=== PATIENT | female | born 1940 | race Caucasian/White ===

== ENCOUNTER → 2018-03-24 12:17 | Outpatient (CLI) | payer MEDICARE, SELFPAY ==
--- NOTE | 2018-03-24 12:20 | MRI_ITS ---
STUDY: MRI LUMBAR SPINE WITHOUT CONTRAST REASON FOR EXAM: Female, 77 years old. Back and leg pain TECHNIQUE: Standardized fat and water weighted pulse sequences were obtained in the sagittal and axial planes. COMPARISON: None FINDINGS: T12-L1: Normal endplates. Normal disc height, hydration and morphology. Normal bilateral facet joints. Normal central canal and bilateral lateral recesses. Normal bilateral intervertebral neural foramina. Normal lumbar lordosis. There is severe levoscoliosis. Scoliosis. Normal conus medullaris that terminates at L1 L1-2: Normal endplates. Normal disc height, desiccation and normal morphology. Normal bilateral facet joints. Normal central canal and bilateral lateral recesses. Normal bilateral intervertebral neural foramina. L2-3: Normal endplates. Normal disc height desiccation and normal morphology. Normal bilateral facet joints. Normal central canal and bilateral lateral recesses. Normal bilateral intervertebral neural foramina. L3-4: Status post right laminotomy Degenerative endplate changes.. Narrowed disc space with desiccation of the disc with small right posterolateral disc/osteophyte protrusion.. Bilateral facet arthropathy more pronounced on the right. Normal bilateral facet joints. Normal central canal. Severe right lateral recess and neuroforaminal stenosis. L4-5: Status post right laminectomy. Normal endplates. Normal disc height, desiccation and minor annular bulge.. Bilateral facet arthropathy and thickening of ligamenta flava more pronounced on the left Normal central canal. Severe bilateral recess and neuroforaminal stenosis L5-S1: Normal endplates. Normal disc height, desiccation and normal morphology. Mild facet arthropathy.. Normal central canal and bilateral lateral recesses. Normal bilateral intervertebral neural foramina. Normal visualized sacral ala. Normal visualized paraspinous soft tissue structures. MRI/Spine Lumbar (Routine) IMPRESSION: Severe levoscoliosis and degenerative changes.. Postsurgical changes L3-4 and L4-5. There is spinal stenosis at L3-4 and L4-5 secondary to disc disease and bony hypertrophy more severe on the right. Electronically Signed: Parker Carver MD at 23:33 EDT , Service support ,
== END ==
LOC: MRI 12:18
PROVIDERS: Family Provider Physician Assistant; PCP Physician Assistant; Visit Provider Anesthesiology Pain Medicine
DX: M54.9 Dorsalgia, unspecified (principal); M79.606 Pain in leg, unspecified
CPT/HCPCS: 72148

== ENCOUNTER → 2018-11-08 12:36 | Outpatient (CLI) | payer MEDICARE, SELFPAY ==
[2018-11-08 14:03] LABS: Amphetamine Urine VISTA NEGATIVE (<1000 ng/mL); Barbiturate Urine VISTA NEGATIVE (< 200 ng/mL); Benzodiazepine Urine VISTA NEGATIVE (< 200 ng/mL); Cocaine Urine VISTA NEGATIVE (< 300 ng/mL); Ecstacy Urine VISTA POSITIVE (< 500 ng/mL); Methadone Urine VISTA NEGATIVE (< 300 ng/mL); PCP Urine VISTA NEGATIVE (< 25 ng/mL); THC Urine VISTA NEGATIVE (< 50 ng/mL); Vista UDS pH Range 5
== END ==
PROVIDERS: Family Provider Physician Assistant; PCP Physician Assistant; Referring Provider Anesthesiology Pain Medicine; Visit Provider Anesthesiology Pain Medicine
DX: F11.20 Opioid dependence, uncomplicated (principal)
CPT/HCPCS: 80307

== ENCOUNTER → 2018-11-16 14:25 | Outpatient (CLI) | payer MEDICARE, SELFPAY ==
[2018-11-16 14:25] VITALS: BMI 38.5
--- NOTE | 2018-11-16 14:29 | RAD_ITS ---
STUDY: X-RAY - LUMBAR SPINE REASON FOR EXAM: Female, 78 years old. Chronic back pain. TECHNIQUE: 4 view(s) of the lumbar spine were obtained including flexion and extension views. COMPARISON: None FINDINGS: There is straightening of the normal lumbar lordosis. There is a marked levoscoliosis of the lumbar spine. There is a normal alignment of the vertebrae. There is multilevel endplate spondylosis of the lumbar vertebrae. There is multi-level degenerative disc disease with multi-level disc space narrowing. Facet joint osteoarthritis. There is atherosclerotic calcification of the abdominal aorta without a demonstrated aneurysm. Multiple calcified splenic granulomas. Large amount of fecal material is seen in the colon. RAD/L/S Spine Min 4 Views IMPRESSION: Degenerative changes of the spine, as detailed above. Marked degree of levoscoliosis. Electronically Signed: Yoni Davila MD at 13:46 EST , Service support ,
--- NOTE | 2018-11-16 15:45 | RAD_ITS ---
STUDY: 2 VIEW THORACOLUMBAR SPINE FOR SCOLIOSIS REASON FOR EXAM: Female, 78 years old. Lumbar 11/16/2018 TECHNIQUE: 2 views of the thoracolumbar spine. COMPARISON: None. FINDINGS: 30 degrees of levoconvex thoracic scoliosis centered at the T4-5 level. 44 degrees of dextroconvex thoracic scoliosis centered at the T9-10 level. 48 degrees of levoconvex lumbar scoliosis centered at the L1-2 level. Clips in the right axilla. Calcified splenic granulomata. Diffuse degenerative disc disease. RAD/Scoliosis 2 or 3 views IMPRESSION: Thoracolumbar scoliosis as described. Electronically Signed: Minor Aranda MD at 6:42 EST Tel , Service support ,
--- OUTSIDE RECORDS SUMMARY | 2019-01-18 20:01 | XMS RPT_ITS ---
:1940 Author Organization OHIP Support Name Relationship Address Phone R Unavailable Unavailable Unavailable MAURICE PINEDO Unavailable [address] + [place] [address] SHAYE PINEDO Unavailable . + ., . . R Unavailable Unavailable Unavailable MAURICE PINEDO Unavailable [address] + [place] [address] SHAYE PINEDO Unavailable . + ., . . R Unavailable Unavailable Unavailable MAURICE PINEDO Unavailable [address] + [place] [address] NOT GIVEN Unavailable Unavailable Unavailable MAURICE PINEDO Unavailable [address] + [place] [address] NOT GIVEN Unavailable Unavailable Unavailable NOT GIVEN Unavailable Unavailable Unavailable MAURICE PINEDO Unavailable [address] + [place] [address] R Unavailable Unavailable Unavailable MAURICE PINEDO Unavailable [address] + [place] [address] NOT GIVEN Unavailable Unavailable Unavailable MAURICE PINEDO Unavailable [address] + [place] [address] NOT GIVEN Unavailable Unavailable Unavailable MAURICE PINEDO Unavailable [address] + [place] [address] NOT GIVEN Unavailable Unavailable Unavailable MAURICE PINEDO Unavailable [address] + [place] [address] NOT GIVEN Unavailable Unavailable Unavailable MAURICE PINEDO Unavailable [address] + [place] [address] Care Team Providers Name Role Phone Audi Preciado Attending Unavailable Audi Preciado Referring Unavailable KAIA YBARRA Primary Care Unavailable Alanis Pacheco Attending Unavailable KAIA YBARRA Referring Unavailable YBARRA, KAIA Primary Care Unavailable Pacheco Alanis Attending Unavailable Tara Alanis Referring Unavailable YBARRA, KAIA Primary Care Unavailable Audi Preciado Attending Unavailable Basali, Ayman Referring Unavailable YBARRA, KAIA Primary Care Unavailable YBARRA, KAIA J Admitting Unavailable YBARRA, KAIA J Attending Unavailable YBARRA, KAIA J Primary Care Unavailable GREGORY SAM Consulting Unavailable PROVIDER, UNKNOWN Consulting Unavailable PROVIDER, UNKNOWN Consulting Unavailable PROVIDER, UNKNOWN Consulting Unavailable YBARRA, KAIA J Admitting Unavailable YBARRA, KAIA J Attending Unavailable YBARRA, KAIA J Primary Care Unavailable GREGORY SAM Consulting Unavailable PROVIDER, UNKNOWN Consulting Unavailable PROVIDER, UNKNOWN Consulting Unavailable PROVIDER, UNKNOWN Consulting Unavailable TERA LAZO DO Admitting Unavailable TERA LAZO DO Attending Unavailable TERA LAZO DO Primary Care Unavailable YBARRA, KAIA J Consulting Unavailable YBARRA, KAIA J Referring Unavailable PROVIDER, UNKNOWN Consulting Unavailable YBARRA, KAIA J Admitting Unavailable YBARRA, KAIA J Attending Unavailable YBARRA, KAIA J Primary Care Unavailable YBARRA, KAIA J Consulting Unavailable PROVIDER, UNKNOWN Consulting Unavailable YBARRA, KAIA J Admitting Unavailable YBARRA, KAIA J Attending Unavailable YBARRA, KAIA J Primary Care Unavailable YBARRA, KAIA J Consulting Unavailable YBARRA, KAIA J Referring Unavailable PROVIDER, UNKNOWN Consulting Unavailable RICHA PHILIPPE Admitting Unavailable RICHA PHILIPPE Attending Unavailable JOSE MARTINRICHA Primary Care Unavailable YBARRA, KAIA J Consulting Unavailable PROVIDER, UNKNOWN Consulting Unavailable YBARRA, KAIA J Admitting Unavailable YBARRA, KAIA J Attending Unavailable YBARRA, KAIA J Primary Care Unavailable YBARRA, KAIA J Consulting Unavailable PROVIDER, UNKNOWN Consulting Unavailable PROBLEMS PROBLEMS DATE TYPE CONDITION / CODE ATTENDING STATUS SOURCE 11/16/2018 Unknown M54.5 - Low back Alanis Pacheco Active [facility] M54.5(ICD-10) Hospital Repository 11/08/2018 Unknown F11.20 - Opioid BasalJah velezisaak Active [place] [facility], Community uncomplicated / Hospital F11.20(ICD-10) Repository 07/13/2018 Principle Hypothyroidism, YBARRA, KAIA Active [facility] Diagnosis unspecified / J [facility] E039(ICD-10) Hospital Repository 12/15/2017 Admitting Nausea / LAZO, Active [facility] Diagnosis R110(ICD-10) TERA DALY [facility] Repository 12/15/2017 Principle Other chest pain / LAZO, Active [facility] [place] Diagnosis R0789(ICD-10) [facility] Repository 12/15/2017 Secondary Other hypotension / LAZO, Active [facility] [place] Diagnosis I9589(ICD-10) [facility] Repository 12/15/2017 Secondary Personal history of LAZO, Active [facility] [place] Diagnosis malignant neoplasm [facility] breast / Hospital Z853(ICD-10) Repository PROCEDURES PROCEDURES No Procedure Records FoundRESULTS RESULTS ORTHOPEDIC VISIT Observed: 11/20/2018 Status: F Source: [facility] REPORT 11:[address] [facility] REPOSITORY [facility] [address] [place] [address] [address] [place] [address] OFFICE VISIT Date of Service: 11/16/18 MR#: [id number] Acct: [id number] Name: RADHA PEDERSEN Rep #: [id number] : 1940 Provider: Alanis Pacheco MD Age/Sex: 78/F Location[place] [facility] Status: Signed Intake Vital Signs11/16/18 Height 5 ft 2 in 11/16/18 Weight: 211 lb 11/16/18 Body Mass Index (BMI) 38.5 Intake Visit Reasons: LOW BACK PAIN Is patient in pain?: Yes Pain scale (1-10): 7 Allergies No Known Allergies Allergy (Unverified 11/16/18 14:25) Medications carvedilol 6.25 mg tablet 6.25 mg PO BID 11/16/18 [History Confirmed 11/16/18] levothyroxine 25 mcg capsule 25 mcg PO DAILY 11/16/18 [History Confirmed 11/16/18] lisinopril 10 mg tablet 10 mg PO DAILY 11/16/18 [History Confirmed 11/16/18] trazodone 100 mg tablet 100 mg PO DAILY 11/16/18 [History Confirmed 11/16/18] PFSH Medical History Hypertension (Chronic) Surgical History H/O mastectomy (Acute) h/o back surgery (Acute) Family History Father CVA (cerebral vascular accident) Mother Hypertension Social History Smoking Status: Former smoker quit date: 10/26/99 pack-years: 15 HPI LOW BACK PAIN: Details: RADHA PEDERSEN is a 78 year old RHD F here today referred by Dr Preciado for low back pain. Patient states that she has had low back pain for about a year with no known injury. Patient states that she has a history of lumbar surgery in 2009 for right leg pain. She believes she had a right L3-L4 bulging disc. The surgery was helpful until a year ago when she started having left leg radiating pain. She denies postoperative complications. She now complains of 50% back pain and 50% left buttock, posterior thigh and calf pain. She denies right leg pain. It is worse with standing and walking and improved with laying. She had physical therapy nearly 3 years ago. She denies aqua therapy. She takes norco for the past [address] Preciado. She states she was recently diagnosed with scoliosis. She has had a 08/2018 caudal MIAH that helped for 4 days. She has had left L4-5 and L5-S1 MIAH in 02/2018 with 2-3 months of improvement. She has a history of breast CA x 2 with chemotherapy ending in 2012. She has hypothyroidism. She takes calcium and Vit D. 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 She has had laparoscopic abdominal surgery. She does use a cane due to pain. she denies bowel or bladder issues or difficulty with hand dexterity. She chews nicotine gum. ROS Musc Reports back pain, Reports radiating pain into limb Ortho Exam Spine Neuro: Yes Clonus (none bilaterally), Gillespie's (negative bilaterally), Babinski (downgoing bilaterally), Straight Leg Raise (positive on the left) and Light Touch Sensation (intact throughout) General: alert, oriented x3 Skin: Yes healed (healed midline lumbar incision) Capillary Refill <2sec: Yes Palpable Pulses: 1+ dp/pt pulses bilaterally Gait: antalgic, other (able to stand on heels and toes) Motor: strength 5/5 throughout Sensory Exam: no sensory deficits noted DTR's: Rt Triceps: 2+, Lt Triceps: 2+, Rt Biceps: 2+, Lt Biceps: 2+, Rt Brachioradialis: 2+, Lt Brachioradialis: 2+, Rt Patellar: 2+, Lt Patellar: 2+, Rt Ankle: 2+, Lt Ankle: 2+ Plantar Reflexes: Downgoing: bilateral Coordination: Romberg test normal Details: noted left valgus knee with standing and walking SPINE TESTING CERVICAL THORACIC Thomas: Positive (right thoracic prominence and left lumbar prominence) LUMBAR SLR: Positive, Le Iliac Compression: Positive, Right, Le Musculoskeletal General: Yes decreased ROM Cervical Spine: cervical muscular tenderness, pain with cervical ROM Thoracic/Lumbar Spine: pain with thoraco-lumbar ROM, paraspinal tenderness, thoraco-lumbar ROM limited, scoliosis Sacroiliac joints: bilateral (positive PARISA bilaterally) Strength 0=absent - 5=normal Deltoid R (C5): 5, Deltoid L (C5): 5, R Bicep (C5-6): 5, L Bicep (C5-6): 5, R Wrist Extensor (C6): 5, L Wrist Extensor (C6): 5, R Tricep (C7): 5, L Tricep (C7): 5, R Finger Flexors (C8): 5, L Finger Flexors (C8): 5, R First Dorsal Interossei (C8): 5, L First Dorsal Interossei (C8): 5, R Hip Flexor (L1-3): 5, L Hip Flexor (L1-3): 5, R Quadriceps (L2-4): 5, L Quadriceps (L2-4): 5, R Anterior Tibialis (L4-5): 5, L Anterior Tibialis (L4- 5): 5, R Hamstrings (L5-S1): 5, L Hamstrings (L5-S1): 5, GS (S1): 5, L GS (S1): 5, R Peroneals (S1): 5, L Peroneals (S1): 5 Details: leveled shoulders and pelvis positive sagittal balance Assessment AND Plan Problems 1. Other secondary scoliosis, thoracolumbar region M41.55 Plan Imaging XR lumbar spine 11/16/2018 reveals diffuse spondylosis with thoracolumbar scoliosis XR scoliosis 11/16/2018 reveals diffuse spondylosis with thoracolumbar scoliosis MRI lumbar spine 03/24/2018 reveals diffuse spondylosis without significant central stenosis. right L3-4, L4-5 foraminal stenosis and left L4-5 and L5-S1 foraminal stenosis I/R/P: 1. back pain 2. left leg pain 3. scoliosis 4. chronic opioid use 5. history of breast CA x 2 with chemotherapy 2012 6. nicotine use Ms. Pedersen presents with back pain and left leg pain in the setting of thoracolumbar scoliosis. The natural history and course of the symptomatology of scoliosis was discussed in detail with the patient. I answered all questions regarding the mode of onset, pathophysiology, symptoms, imaging findings, treatment options (both non-operative and operative) regarding her diagnosis. She is very fearful that her cancer has returned. There is no noted obvious lesion on MRI. She has no constitutional symptoms; however, given it has been a while since she saw her oncologist, would recommend reevaluation and reassurance. Discussed surgical intervention would be a large deformity surgery to include T4-ilium instrumented fusion. She would like to think about it. Recommend initiation of aqua therapy and physical therapy. Counseled on nicotine cessation. Follow up in 6-8 weeks and after she has seen her oncologist or sooner if issues arise. Plan of care discussed. All questions answered. The patient verbalized understanding of the disease process and agreed to the treatment plan formulated for this visit. Orders Orders: Coding Level of Care Code Off vis,new,level 4 Diagnoses Other secondary scoliosis, thoracolumbar region M41.55 Scoliosis type: other secondary scoliosis Spinal region: thoracolumbar 11/20/18 1131 <Electronically signed by Alanis Pacheco MD> Date Alanis Pacheco MD Cosigner Signature: Date (if applicable) CC: Audi Preciado MD SCOLIOSIS 2 OR 3 VIEWS Observed: 11/16/2018 Status: F Source: [place] 3:[address] [facility] REPOSITORY [facility] Imaging Services [address] [place] [address] Scoliosis 2 or 3 views MR#: [id number] Acct: [id number] Name: RADHA PEDERSEN Rep #: [id number] : 1940 F 78 From: Minor Aranda MD PCP: DANIELLA MENDOZA Status: REG CLI Study: Scoliosis 2 or 3 views Date of Exam: 11/16/18 Exam# [id number] Ordering Dr: Alanis Pacheco MD STUDY: 2 VIEW THORACOLUMBAR SPINE FOR SCOLIOSIS REASON FOR EXAM: Female, 78 years old. Lumbar 11/16/2018 TECHNIQUE: 2 views of the thoracolumbar spine. COMPARISON: None. FINDINGS: 30 degrees of levoconvex thoracic scoliosis centered at the T4-5 level. 44 degrees of dextroconvex thoracic scoliosis centered at the T9-10 level. 48 degrees of levoconvex lumbar scoliosis centered at the L1-2 level. Clips in the right axilla. Calcified splenic granulomata. Diffuse degenerative disc disease. RAD/Scoliosis 2 or 3 views IMPRESSION: Thoracolumbar scoliosis as described. Electronically Signed: Minor Aranda MD at 6:42 EST Tel , Service support , CC: DANIELLA YBARRA; Alanis Pacheco MD Principal Network Architect: Signed L/S SPINE MIN 4 Observed: 11/16/2018 Status: F Source: [facility] VIEWS 2:[address] [facility] REPOSITORY [facility] Imaging Services [address] [place] [id number] L/S Spine Min 4 Views MR#: [id number] Acct: [id number] Name: RADHA PEDERSEN Rep #: [id number] : 1940 F 78 From: Yoni Davila MD PCP: DANIELLA MENDOZA Status: REG CLI Study: L/S Spine Min 4 Views Date of Exam: 11/16/18 Exam# [id number] Ordering Dr: Alanis Pacheco MD STUDY: X-RAY - LUMBAR SPINE REASON FOR EXAM: Female, 78 years old. Chronic back pain. TECHNIQUE: 4 view(s) of the lumbar spine were obtained including flexion and extension views. COMPARISON: None FINDINGS: There is straightening of the normal lumbar lordosis. There is a marked levoscoliosis of the lumbar spine. There is a normal alignment of the vertebrae. There is multilevel endplate spondylosis of the lumbar vertebrae. There is multi-level degenerative disc disease with multi-level disc space narrowing. Facet joint osteoarthritis. There is atherosclerotic calcification of the abdominal aorta without a demonstrated aneurysm. Multiple calcified splenic granulomas. Large amount of fecal material is seen in the colon. RAD/L/S Spine Min 4 Views IMPRESSION: Degenerative changes of the spine, as detailed above. Marked degree of levoscoliosis. Electronically Signed: Yoni Davila MD at 13:46 EST , Service support , CC: DANIELLA YBARRA; Alanis Pacheco MD Principal Network Architect: Signed URINE DRUG SCREEN Collected: 11/08/2018 Status: F Source: [place] ([place]) 12:[address] [facility] REPOSITORY Order Comment: List of Drugs Taken or Suspected? UNK TYPE CODE TESTS RESULT OUT OF RANGE REFERENCE UNITS LAB L505.0075 TO BE Normal CONFIRMED Result Comment: CONFIRMATORY TESTING FOR ALL POSITIVE URINE DRUG SCREEN RESULTS WILL ONLY BE SENT OUT UPON PHYSICIAN ORDER. VISTA Urine Drug Screen methods provide only preliminary analytical test results. A more specific alternate chemical method must be used in order to obtain a confirmed analytical result. Gas chromatography/mass spectrometery (GC/MS) is the preferred confirmatory method. Clinical consideration and professional judgement should be applied to any drug of abuse test result, particularly when preliminary positive results are used. URINE TCA TESTING MUST BE ORDERED SEPARATELY. USE TEST MNEMONIC: [facility] LAB L505.5005 VISTA UDS PH 5 Normal LAB L505.5015 <1000 ng/mL AMPHETAMINES Normal NEGATIVE LAB L505.5025 < 200 ng/mL BARBITIURATES Normal NEGATIVE LAB L505.5035 < 200 ng/mL BENZODIAZIPINE Normal NEGATIVE LAB L505.5045 < 300 ng/mL COCAINE Normal NEGATIVE LAB L505.5055 < 500 High ng/mL ECSTACY POSITIVE LAB L505.5065 < 300 ng/mL METHADONE Normal NEGATIVE LAB L505.5075 < 300 ng/mL OPIATES Normal NEGATIVE LAB L505.5085 < 25 ng/mL PCP Normal NEGATIVE LAB L505.5095 < 50 ng/mL THC Normal NEGATIVE Performed By: #### L505.5000 #### [facility] [address] [place], [address] MISCELLANEOUS LAB Collected: 11/08/2018 Status: F Source: [facility] PROCEDURE 12:[address] [facility] REPOSITORY Order Comment: Test(s) Ordered: URINE TOXICOLOGY [id number] RUN LOWEST TEST TYPE CODE TESTS RESULT OUT OF RANGE REFERENCE UNITS LAB L801.1541 Normal [facility] LAB TEST Result Comment: [id number] 6+OXYCODONE-BUND (ng/mL) DRUG RESULT SCREEN CUTOFF ____ Amphetamines,Urine Negative ng/mL 1000 Amphetamine test includes Amphetamine and Methamphetamine. Barbiturates Negative ng/mL 200 Benzodiazepines Negative ng/mL 200 Cannabinoid Negative ng/mL 20 Cocaine (Metab) Negative ng/mL 300 Opiates Negative ng/mL 300 Opiates test includes Codeine, Morphine, Hydromorphone, Hydrocodone. Oxycodone/Oxymorphone,Urine Negative ng/mL 300 Test includes Oxydodone and Oxymorphone. TESTING PERFORMED AT [facility]. ORIGINAL REPORT ON FILE IN LAB CONTAINS ADDITIONAL TEST SITE INFORMATION. Performed By: #### L801.1541 #### [facility] [address] [place], [address] US THYROID Observed: 04/09/2018 Status: F Source: [place] [facility] [place] [address] [place], [place] [address] Patient: RADHA PEDERSEN Phone#: : 1940 Age: 77 Gender: F Pt. Type: Out Account: [id number] Location: [facility] Ordering: [facility] Exam Date: 04/09/2018/12:50 Family Phys: Charge Code: [id number] Physician: [place] Order #: [id number] DLP Dose#: PROCEDURE: THYROID ULTRASOUND COMPARISON: None. INDICATIONS: Right Neck Mass TECHNIQUE: High-resolution ultrasound was performed of the thyroid gland. FINDINGS: RIGHT LOBE: Normal. No visible mass, cyst, calcification, enlargement, or abnormal echotexture. Right lobe measures 3.6 x 1.5 x 1.5 cm. LEFT LOBE: Normal. No visible mass, cyst, calcification, enlargement, or abnormal echotexture. Left lobe measures 2.7 x 1.3 x 1.4 cm. ISTHMUS: Normal. No visible mass, cyst, calcification, enlargement, or abnormal echotexture. Isthmus measures 0.5 cm. OTHER: None. There is no evidence of focal abnormality at the site of palpable nodule. CONCLUSION: 1. The thyroid lobes are normal bilaterally. 2. There is no evidence of mass or cyst in the region of palpable abnormality. Dictated by: Mallory Dominguez MD on 04/09/2018 at 13:55 Approved by: Mallory Dominguez MD on 04/09/2018 at 13:55 SPINE LUMBAR Observed: 03/24/2018 Status: F Source: [facility] (ROUTINE) 12:[address] [facility] REPOSITORY [facility] Imaging Services [address] [place] [address] Spine Lumbar (Routine) MR#: [id number] Acct: [id number] Name: RADHA PEDERSEN Rep #: [id number] : 1940 F 77 From: Parker Carver MD PCP: DANIELLA MENDOZA Status: REG CLI Study: Spine Lumbar (Routine) Date of Exam: 03/24/18 Exam# [id number] Ordering Dr: Audi Preciado MD STUDY: MRI LUMBAR SPINE WITHOUT CONTRAST REASON FOR EXAM: Female, 77 years old. Back and leg pain TECHNIQUE: Standardized fat and water weighted pulse sequences were obtained in the sagittal and axial planes. COMPARISON: None FINDINGS: T12-L1: Normal endplates. Normal disc height, hydration and morphology. Normal bilateral facet joints. Normal central canal and bilateral lateral recesses. Normal bilateral intervertebral neural foramina. Normal lumbar lordosis. There is severe levoscoliosis. Scoliosis. Normal conus medullaris that terminates at L1 L1-2: Normal endplates. Normal disc height, desiccation and normal morphology. Normal bilateral facet joints. Normal central canal and bilateral lateral recesses. Normal bilateral intervertebral neural foramina. L2-3: Normal endplates. Normal disc height desiccation and normal morphology. Normal bilateral facet joints. Normal central canal and bilateral lateral recesses. Normal bilateral intervertebral neural foramina. L3-4: Status post right laminotomy Degenerative endplate changes.. Narrowed disc space with desiccation of the disc with small right posterolateral disc/osteophyte protrusion.. Bilateral facet arthropathy more pronounced on the right. Normal bilateral facet joints. Normal central canal. Severe right lateral recess and neuroforaminal stenosis. L4-5: Status post right laminectomy. Normal endplates. Normal disc height, desiccation and minor annular bulge.. Bilateral facet arthropathy and thickening of ligamenta flava more pronounced on the left Normal central canal. Severe bilateral recess and neuroforaminal stenosis L5-S1: Normal endplates. Normal disc height, desiccation and normal morphology. Mild facet arthropathy.. Normal central canal and bilateral lateral recesses. Normal bilateral intervertebral neural foramina. Normal visualized sacral ala. Normal visualized paraspinous soft tissue structures. MRI/Spine Lumbar (Routine) IMPRESSION: Severe levoscoliosis and degenerative changes.. Postsurgical changes L3-4 and L4-5. There is spinal stenosis at L3-4 and L4-5 secondary to disc disease and bony hypertrophy more severe on the right. Electronically Signed: Parker Carver MD at 23:33 EDT , Service support , CC: DANIELLA YBARRA; Audi Preciado MD Principal Network Architect: Signed CV ECHO COMPLETE Observed: 02/17/2018 Status: F Source: [facility] 2:30 PM [place] [address] Patient: RADHA PEDERSEN Phone#: : 1940 Age: 77 Gender: F Pt. 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 PATIENT MEASUREMENTS: Height (in.): 62.5 BSA: 1.9 Weight (lbs.): 204 BP: 102/73 Sweet Pickled Fruit Maker: FRANCISCO M MODE 2D MEASUREMENTS AND CALCULATIONS: LVIDd: 3.44 cm LVIDs: 2.30 cm IVSd: 1.15 cm LVPWd: 1.23 cm FS: 33.19 % Ao Root diam: 2.62 cm LA diam: 3.10 cm LA Volume Index: 19.3 mL/m2 LA A4 Area: 13.9 cm RA A4 Area: 11.8 cm RVDd: 2.12 cm TAPSE: 18 mm DOPPLER MEASUREMENTS AND CALCULATIONS MITRAL MV E MAX maxi: 54.03 cm/s MV A MAX maxi: 79.37 cm/s MV E-A ratio: 0.68 Lat Peak E' Maxi 7 cm/s Septal Peak E' MAXI 5 cm/s Continued Report - Page 2 of 3 Patient: RADHA PEDERSEN Phone#: : 1940 Age: 77 Gender: F Pt. Type: Out Account: [id number] Location: 052 Ordering: RICHA PHILIPPE Exam Date: 02/17/2018/12:59 Family Phys: KAIA YBARRA Charge Code: [id number] Physician: [place] Order #: [id number] DLP Dose#: Lateral E./E.' 7.9 Medial E./E.' 10.5 AORTIC Ao V2 max: 161.63 cm/s Ao max P.45 mm[Hg] LV V1 Max 104.51 cm/s LV V1 Max PG 4.37 mm[Hg] PULMONIC PA V2 Max 85.53 cm/s PA Max PG 2.93 mm[Hg] TRICUSPID TR Max Maxi 213.65 cm/s TR max PG 18.39 mm[Hg] RVSP 21 mmHg 2D/M-MODE AND COLOR FLOW LEFT VENTRICLE: Normal left ventricle size and wall thickness. Normal wall motion and systolic function, ejection fraction 55-60%. Grade 1 diastolic dysfunction with normal left atrial filling pressures. WALL MOTION: 1 - Basal anterior: Normal. 7 - Mid anterior: Normal. 13 - Apical anterior: Normal. 2 - Basal anteroseptal: Normal. 8 - Mid anteroseptal: Normal. 14 - Apical septal: Normal. 3 - Basal inferoseptal: Normal. 9 - Mid inferoseptal: Normal. 15 - Apical inferior: Normal. 4 - Basal inferior: Normal. 10-Mid inferior: Normal. 16 - Apical lateral: Normal. 5 - Basal inferolateral: Normal. 11-Mid inferolateral: Normal. 6 - Basal anterolateral: Normal. 12-Mid anterolateral: Normal. RIGHT VENTRICLE: Normal size and systolic function. Prominent moderator band noted. LEFT ATRIUM: Normal RIGHT ATRIUM: Normal MITRAL VALVE: Mild mitral annular calcification. Normal leaflet structure and mobility. No significant mitral stenosis or regurgitation. TRICUSPID VALVE: Normal leaflet structure and mobility. Mild tricuspid regurgitation. AORTIC VALVE: Trileaflet aortic valve with mild aortic valve thickening consistent with mild aortic sclerosis. No significant aortic stenosis or regurgitation. PULMONIC VALVE: Normal leaflet structure and mobility. Mild pulmonic insufficiency AORTIC ROOT: Normal size and mildly calcified IVC/SVC: Normal size and normal respirophasic response PERICARDIUM: No significant pericardial effusion CONCLUSION: Continued Report - Page 3 of 3 Patient: RADHA PEDERSEN Phone#: : 1940 Age: 77 Gender: F Pt. Type: Out Account: [id number] Location: 052 Ordering: RICHA PHILIPPE Exam Date: 02/17/2018/12:59 Family Phys: KAIA YBARRA Charge Code: [id number] Physician: [place] Order #: [id number] DLP Dose#: 1. Normal left ventricle size and wall thickness with normal wall motion and systolic function, ejection fraction 55- 60%. 2. Normal right ventricle size and systolic function. 3. Mild mitral annular calcification. 4. Mild tricuspid and pulmonic insufficiency. 5. Mild aortic sclerosis with no significant aortic stenosis. 6. Grade 1 diastolic dysfunction. 7. RVSP extremities reveal 1 mm. 8. As compared to the last report of 11/05/2016, no significant changes were noted. Dictated by: PEREZ ANGULO on 02/18/2018 at 10:09 Approved by: PEREZ ANGULO on 02/18/2018 at 10:09 CV ARTERIAL U OR L Observed: 02/17/2018 Status: F Source: [facility] 2:07 PM [place] [address] Patient: RADHA PEDERSEN Phone#: : 1940 Age: 77 Gender: F Pt. Type: Out Account: [id number] Location: 052 Ordering: RICHA PHILIPPE Exam Date: 02/17/2018/13:29 Family Phys: KAIA YBARRA Charge Code: [id number] Physician: [place] Order #: [id number] DLP Dose#: PROCEDURE: ARTERIAL BILAT U OR L SINGLE PHYSIOLOGY COMPARISON: None. INDICATIONS: Abnormal pulse TECHNIQUE: Resting continuous-wave Doppler recordings were obtained from the posterior tibial and dorsalis pedis arteries. Resting volume pulse recordings and segmental limb pressures were obtained at the ankle levels. CONTINUOUS-WAVE DOPPLER RIGHT LEFT Posterior Tibial Artery Triphasic Triphasic Dorsalis Pedis Triphasic Biphasic SEGMENTAL SYSTOLIC LIMB PRESSURES RIGHT (mmHg) LEFT (mmHg) Brachial: 102 102 Ankle (DPA): 112 100 Ankle (REGISTERED RESPIRATORY TECHNICIAN): 99 136 ANKLE BRACHIAL INDEX RIGHT LEFT 1.1 1.3 Sweet Pickled Fruit Maker: FRANCISCO FINDINGS: Right Lower Extremity: The right lower extremity demonstrates normal triphasic Doppler signals at the posterior tibial, and dorsalis pedis arteries. There are no significant pressure differentials in the segmental limb pressures when comparing side to side. Continued Report - Page 2 of 2 Patient: NUVIA RADHA Natasha Phone#: : 1940 Age: 77 Gender: F Pt. Type: Out Account: [id number] Location: 052 Ordering: RICHA PHILIPPE Exam Date: 02/17/2018/13:29 Family Phys: KAIA YBARRA Charge Code: [id number] Physician: Guayanilla Order #: [id number] DLP Dose#: Left Lower Extremity: The left lower extremity demonstrates normal triphasic Doppler signal at the posterior tibial and biphasic Doppler signal at the dorsalis pedis arteries. There are no significant pressure differentials in the segmental limb pressures when comparing side to side. CONCLUSION: 1. Normal bilateral ABIs Dictated by: Jihan Baird MD on 02/18/2018 at 14:55 Approved by: Jihan Baird MD on 02/18/2018 at 15:08 NM CARDIAC STRESS Observed: 01/20/2018 Status: F Source: [facility] (SPECT) W/NARAYAN 11:02 AM [place] [address] Patient: NUVIA RADHA Natasha Phone#: : 1940 Age: 77 Gender: F Pt. Type: Out Account: [id number] Location: 052 Ordering: KAIA YBARRA Exam Date: 01/20/2018/8:05 Family Phys: HOLDEN MOREJON Charge Code: [id number] Physician: [place] Order #: [id number] DLP Dose#: PROCEDURE: CARDIAC STRESS SPECT WITH LEXISCAN HISTORY: bilat mastectomy INDICATIONS: Chest pain TECHNIQUE: Resting and post Lexiscan stress SPECT images acquired in the horizontal long, vertical long and short axis views. Protocol: Lexiscan Duration: 0.4mg over 10 seconds Peak Heart Rate: 117 bpm, which is 80% of maximum predicted heart rate. Workload: not applicable REST DOSE: 10.3 mCi Sestamibi. STRESS DOSE: 32.8 mCi Sestamibi. INTERPRETATION: Resting Images: Resting myocardial perfusion images showed mild perfusion defect at the basal- mid inferior wall and moderate perfusion defect at the apical inferior wall Post Lexiscan stress Images: Post stress myocardial perfusion images showed similar or improved perfusion Gated SPECT/wall motion: LVF 59% with mild hypokinesis of inferior wall TID 1.0 CONCLUSION: Cannot rule out inferior wall infarct/hibernation on the imaging part of lexiscan nuclear stress test LVEF 59% with mild hypokinesis of the inferior wall Clinical correlation [place] [address] Patient: RADHA PEDERSEN Phone#: : 1940 Age: 77 Gender: F Pt. Type: Out Account: [id number] Location: [facility] Ordering: KAIA YBARRA Exam Date: 01/20/2018/8:05 Family Phys: HOLDEN MOREJON Charge Code: [id number] Physician: [place] Order #: [id number] DLP Dose#: Dictated by: Brett Abdul MD on 01/20/2018 at 11:15 Approved by: Brett Abdul MD on 01/20/2018 at 11:15 NM EXERCISE STRESS Observed: 01/20/2018 Status: F Source: [facility] (W/CARDIAC STUDY 10:22 AM [place] [address] Patient: RADHA PEDERSEN Phone#: : 1940 Age: 77 Gender: F Pt. Type: Out Account: [id number] Location: 052 Ordering: KAIA YBARRA Exam Date: 01/20/2018/6:26 Family Phys: RICHA PHILIPPE Charge Code: [id number] Physician: [place] Order #: [id number] DLP Dose#: PROCEDURE: ELECTROCARDIOGRAM STRESS TEST HISTORY: bilat mastectomy INDICATIONS: Lightheadedness TECHNIQUE: Electrocardiogram stress test was performed using the protocol listed below. STRESS RESULTS: Protocol: Lexiscan Duration: 0.4mg over 10 seconds Resting Heart Rate: 78 bpm. Resting Blood Pressure: 106/72 mmHg Peak Heart Rate: 117 which is 80% of maximum predicted heart rate Blood pressure with Lexiscan With Lexiscan infusion blood pressure increased to115/70 Workload: 1.70 METs. Symptoms with stress: no chest pain EKG Data EKG at Baseline: Normal sinus rhythm with nonspecific ST changes EKG with Stress: No ischemic ST changes were noted, no arrhythmia was noted CONCLUSION: Negative for ischemia EKG part of Lexiscan nuclear stress test, imaging part will be dictated separately. Dictated by: Brett Abdul MD on 01/20/2018 at 10:30 Approved by: Brett Abdul MD on 01/20/2018 at 10:30 CV CAROTID STUDY Observed: 12/30/2017 Status: F [facility]: [facility] 11:22 AM [place] [address] Patient: RADHA PEDERSEN Phone#: : 1940 Age: 77 Gender: F Pt. Type: Out Account: [id number] Location: 052 Ordering: KAIA YBARRA Exam Date: 12/30/2017/10:49 Family Phys: Charge Code: [id number] Physician: [place] Order #: [id number] DLP Dose#: PROCEDURE: CAROTID FLOW STUDY COMPARISON: None. INDICATIONS: Lightheadedness TECHNIQUE: Color duplex Doppler ultrasound and pulsed Doppler analysis were performed to evaluate the cervical carotid arteries and vertebral flow. All measurements for carotid artery narrowing or stenosis were obtained using the ipsilateral distal internal carotid artery as the reference value. RESTRICTIVE PREPARATION OPERATOR: FRANCISCO PT HISTORY: bilat mastectomy Lightheadedness RIGHT IMAGING FINDINGS: CCA: Intimal wall thickening is present. ICA: Intimal wall thickening present. ECA: Intimal wall thickening is present. Vertebral A: Antegrade flow Comments: Category: II. Less than 50% stenosis. ICA PSV less [id number]. Plaque and/or intimal thickening present. LEFT IMAGING FINDINGS: CCA: Mild heterogenous plaque is present. ICA: Moderate heterogenous plaque without hemodynamically significant stenosis. ECA: Intimal wall thickening is present. Vertebral A: Antegrade flow. Comments: Category: II Less than 50% stenosis ICA PSV, less [id number]. Plaque and/or intimal thickening present. RIGHT VELOCITY RECORDINGS Prox CCA: 61.93 cm/s Prox CCA EDV: 17.03 cm/s Continued Report - Page 2 of 2 Patient: RADHA PEDERSEN Phone#: : 1940 Age: 77 Gender: F Pt. Type: Out Account: [id number] Location: 05 Ordering: KAIA UNDERHILL Exam Date: 12/30/2017/10:49 Family Phys: Charge Code: [id number] Physician: [place] Order #: [id number] DLP Dose#: Mid CCA: 62.45 cm/s Mid CCA EDV: 16.24 cm/s Distal CCA: 61.20 cm/s Distal CCA EDV: 17.49 cm/s ECA: 52.45 cm/s ECA EDV: 6.56 cm/s Prox ICA: 69.95 cm/s Prox ICA EDV: 18.74 cm/s Mid ICA: 91.18 cm/s Mid ICA EDV: 36.22 cm/s Distal ICA: 53.43 cm/s Distal ICA EDV: 20.67 cm/s Vertebral Artery: 43.47 cm/s Vertebral Artery EDV: 13.54 cm/s Subclavian Artery: 70.91 cm/s LEFT VELOCITY RECORDINGS Prox CCA: 67.45 cm/s Prox CCA EDV: 18.74 cm/s Mid CCA: 63.70 cm/s Mid CCA EDV: 22.48 cm/s Distal CCA: 52.45 cm/s Distal CCA EDV: 15.04 cm/s ECA: 33.72 cm/s ECA EDV: 7.49 cm/s Prox ICA: 98.68 cm/s Prox ICA EDV: 34.97 cm/s Mid ICA: 41.61 cm/s Mid ICA EDV: 19.12 cm/s Distal ICA: 60.82 cm/s Distal ICA EDV: 26.07 cm/s Vertebral Artery: 31.71 cm/s Vertebral Artery EDV: 13.12 cm/s Subclavian Artery: 84.52 cm/s CONCLUSION: 1. No hemodynamically significant stenosis. 2. Atheromatous plaque at the left bifurcation without hemodynamically significant stenosis. Dictated by: Jihan Baird MD on 12/30/2017 at 15:52 Approved by: Mallory Dominguez MD on 01/03/2018 at 18:44 EMERGENCY DEPARTMENT Observed: 12/20/2017 Status: F Source: [facility] SUMMARY 9:13 [facility] EMERGENCY DEPARTMENT SUMMARY NAME NUMBER SEX AGE ADMIT DISC TYPE MED.RECORD# NUVIA WELLS J [id number] F 77 12/15/17 12/15/17 E.RRajwinder [id number] ROOM:ER-C DATE OF :1940 PHYSICIAN NO.:[id number] PHYSICIAN NAME:Tera Lazo D.O. PHYSICIAN:KAIA YBARRA ADDENDUM: The patient's care was turned over to Dr. Booker awaiting a return call back from Dr. Rosenthal for admission of the patient. D: Tera Lazo DO TD: 19:49 JOB #: [id number] Electronically signed by: Tera Lazo D.O. 12/20/17 09:13 Transcribed by: am 12/16/2017 20:15 EMERGENCY DEPARTMENT Observed: 12/20/2017 Status: F Source: [facility] SUMMARY 9:13 [facility] EMERGENCY DEPARTMENT SUMMARY NAME NUMBER SEX AGE ADMIT DISC TYPE MED.RECORD# NUVIA MORTENSENAH J [id number] F 77 12/15/17 12/15/17 ERajwinderRRajwinder [id number] ROOM:ER-C DATE OF :1940 PHYSICIAN NO.:[id number] PHYSICIAN NAME:Tera Lazo D.O. PHYSICIAN:KAIA YBARRA CHIEF COMPLAINT: Right-sided back, chest pain, cough for the past several days. HISTORY OF PRESENT ILLNESS: The patient states she does have a history of chronic low back pain and sees pain management with a recent injection of her lumbar spine. She states that the pain on the right side is in the flank area. It is sharp, stabbing, and feels like it catches, especially when she coughs. She denies any urinary symptoms. She does admit to a remote history of hematuria. PAST MEDICAL HISTORY: Includes breast cancer, hypertension, pneumonia, CHF, and heart disease. PAST SURGICAL HISTORY: Includes bilateral mastectomy, back surgery, and cholecystectomy. MEDICATIONS: Medication list was reviewed. ALLERGIES: Biaxin and Demeclocycline. SOCIAL HISTORY: The patient denies any use of tobacco or alcohol. PHYSICAL EXAMINATION: Temperature was 97.8, pulse 61, respiratory rate 16, initial blood pressure was high at 181/101, pulse ox was 94%. In general, the patient is alert, awake, oriented, appears to be in [id number] distress secondary to flank pain, nontoxic appearing without obvious respiratory distress. HEENT: Reveals oral mucosa pink and moist. Neck is supple without meningismus. Heart is regular rate and rhythm without murmurs, heaves, lift, or thrills. Lungs are essentially clear to auscultation. The patient does splint with deep inspiration due to discomfort. Abdomen is soft and benign without rebound, rigidity, or guarding noted. The patient does have right-sided c.v.a. tenderness worse with percussion. There is no crepitance or step-off of the posterior chest wall. There is no subcutaneous emphysema. Skin is warm, soft, dry and intact without rash. Capillary refill less than 2 seconds. Peripheral pulses are +2/4 in upper extremities. There is no peripheral edema noted. DIAGNOSTIC DATA: Due to patient's location of pain, I was concerned about possibility of either pneumonia and/or kidney stone. The patient had basic blood work and urinalysis ordered. White blood cell count was slightly elevated at 12.4, hemoglobin is normal at 14.2, hematocrit was normal at 41.9, platelet count was normal at 179,000 without left shift. Lipase was normal at 28. Troponin I was less than 0.01. BUN was elevated at 22, creatinine was elevated at 1.3. GFR was 40. AST was low at 11, and the rest of the liver enzymes were normal. Initial EKG reveals a sinus bradycardia with occasional PVCs; otherwise, there is no acute ST or T wave changes noted. The P wave is somewhat enlarged on EKG as well. CT scan of the abdomen and pelvis per stone protocol was performed and per the radiologist reveals no nephrolithiasis or hydronephrosis, dilated cystic duct remnant, two high attenuation structures at the cystic remnant may represent suture material versus small cholelithiasis. A chest x-ray reveals no acute pulmonary parenchymal abnormality. No change. Tortuous thoracic aorta. The descending aorta appears enlarged; however, this may be projectional. I did have a discussion with the radiologist concerning the patient's aorta on CT scan. She says there is no evidence of aneurysm or active bleeding noted on the noncontrast study, and she felt the only reason to order a CT scan with IV contrast would be to rule out the rare incidents of an occluded aorta. EMERGENCY DEPARTMENT COURSE AND TREATMENT: I did go back to the patient's room and reevaluate her lower extremities, and pulses are +2/4 and present at the dorsalis pedis and tibialis. Capillary refill is less than 2 seconds. There is no peripheral edema appreciated. During the course of the ED visit, the patient was treated with IV morphine and Zofran for nausea and a second dose of Zofran due to continued nausea. The patient then, approximately an hour and half to 2 hours after treatment with IV morphine, was noted to be hypotensive and then a lactic acid level was ordered and blood culture as well. The lactic acid level was normal at 5.4. She was also treated with IV fluids with 500 mL normal saline bolus with improvement of her blood pressure. On reevaluation of the patient after that, reveals the patient to be feeling better, though continues to have right flank pain and some nausea. DIAGNOSES: 1. Right flank pain - uncertain etiology. 2. Nausea. 3. Hypotensive episode. PLAN/DISPOSITION: My plan was to admit the patient overnight under the care of Dr. Rosenthal. I am currently awaiting call back by Dr. Rosenthal. The patient is currently stable, satisfactory condition. D: Tera Lazo DO TD: 19:49 JOB #: [id number] Electronically signed by: Tera Lazo D.O. 12/20/17 09:13 Transcribed by: am 12/16/2017 19:55 EMERGENCY DEPARTMENT Observed: 12/16/2017 Status: F Source: [facility] [place] 6[place] [facility] [place] SUMMARY NAME NUMBER SEX AGE ADMIT DISC TYPE MED.RECORD# NUVIA Workman [id number] F 77 12/15/17 12/15/17 E.RRajwinder [id number] ROOM:ER-C DATE OF :1940 PHYSICIAN NO.:[id number] PHYSICIAN NAME:Tera Lazo D.O. PHYSICIAN:KAIA YBARRA CHIEF COMPLAINT: Nausea associated with right chest pain. HISTORY OF PRESENT ILLNESS: The patient was initially seen by Dr. Lazo who endorsed care to Dr. Booker at 1945 hours on 12/15/2017 for recommendations for care to be obtained from Dr. Rosenthal. The patient was seen in room #3 in the presence of another sister and also another person who is Dr. Wolf's [id number]. The patient states that she has had this present since yesterday. It is discomfort to the right side, she indicated to the right lower rib margin below the scapula in the midscapular line. It is worse to turn. When she turns she gets a sharp pain and it makes her a little bit sick to her stomach and nauseated. She states the only time she has had this in the past was when she had pneumonia. She states she has not had a cold cough or congestion, but she states she has a runny nose, and she states that all old people have runny noses. She denies any fever or chills. She denies any abdominal pain and states she is occasionally nauseated. She denies vomiting or diarrhea. She states she has been eating well. She denies any chest pain. She denies shortness of breath. She admits to some headache, which is frontal. No change in vision, hearing or speech. No numbness or tingling of the arms or the legs. She and her sister note that when she moves, it hurts her. She states she knows no cause for this. She has no history of kidney stones. She has had her gallbladder out. 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 She states she has never head a heart catheterization. 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 PAST MEDICAL HISTORY: She has a history of cancer x2, left breast, remote. She is not a diabetic. SOCIAL HISTORY: She states she does not smoke and does not use alcohol. She lives alone. 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 DIAGNOSTIC DATA: CT of the chest, abdomen and pelvis showed no significance. There was no PE. There was no aneurysm. She had essentially normal laboratory data. She had two troponins. One was less than 0.01 and the other was 0.01. Her initial EKG at 1603 hours was a normal sinus mechanism with any evidence of acute RI or ischemia. One PVC was noted. This was interpreted by Dr. Lazo and also reviewed by Dr. Booker. Second EKG reviewed by Dr. Booker at 2039 hours showed essentially no change from the first EKG with a rate of 62. No acuity was seen. EMERGENCY DEPARTMENT COURSE AND TREATMENT: Initially, when she presented an IV was placed. She was uncomfortable and morphine was given, after which she dropped her pressure down into the 90s. However, this responded with fluids and has been maintained since that time. The discomfort does not radiate anywhere, but when she moves, she can reproduce it. It is also reproducible by palpation. She states she has not had shingles in the past, but notes it does not radiate up to the front of her abdomen or chest. The morphine made her feel better, but her pressure went down slightly and then went back to normal. She was given Premont here in the emergency room and she states that made her back feel better. She states she still has some slight nausea. Zofran given earlier in the course of therapy here in the emergency room had relieved the nausea. DIAGNOSIS: 1. Chest wall discomfort of unseen cause. 2. Transient episode of hypotension, suspect secondary to administration of morphine. 3. Musculoskeletal discomfort right chest. No evidence of coronary artery disease, abnormal enzymes or EKGs. PLAN/DISPOSITION: I spoke to Dr. Rosenthal regarding her care at 2100 hours and again at 2140 hours. I could not find any cause for this lady's discomfort. There was no rash present. She has reproducible pain in the posterior scapular line. There is no rash present. She could reproduce it herself. She states when she does so, she gets a little nausea. She states she still has a little nausea. I reviewed her case with Dr. Wolf who thought that based on Dr. Rosenthal's decision and my own observations that she could go home. She will be given Zofran for home and prescription for same. She is to use her Premont at home. She is to call Dr. Wolf in the morning for recheck appointment or Kaia Ybarra. She was discharged at 2145 hours. She states she still had slight nausea, but otherwise was feeling better in her back and she was told she could call Dr. Booker in the emergency room anytime tonight as needed. Otherwise she is to follow up with her doctor in the office. To this the patient agreed. D: Darnell Booker MD TD: 23:08 JOB #: [id number] Electronically signed by: E-SIGN DARNELL BOOKER DO 12/16/17 06:32 Transcribed by: ap 12/15/2017 23:33 TROPONIN Collected: 12/15/2017 Status: F Source: [facility] 8:50 PM [facility] REPOSITORY TYPE CODE TESTS RESULT OUT OF REFERENCE UNITS RANGE LAB TROPONIN 0.00 - 0.05 ng/ml I(LOINC) TROPONIN I 0.01 Result Comment: Elevated troponin (above the 99th percentile) usually indicates myocardial ischemia. Results must be interpreted within the clinical setting. 1.Non-ischemic pathology can also cause elevated troponin levels (e.g., acute pulmonary embolism, myocarditis, pericarditis, heart failure, intracranial injury, rhabdomyolisis, sepsis, shock and renal insufficiency). 2.Approximately 1% of healthy adults have elevated troponin levels. 3.Analytical false positive results rarely occur(due to multiple interferences such as heterophile antibodies). Performed By: #### [id number] #### [facility],[address] [place] [address] Observed: 12/15/2017 Status: F Source: [facility] INFLUENZA VIRUS RAPID 8:00 [facility] A/B REPOSITORY INFLUENZA A NEGATIVE INFLUENZA B NEGATIVE INTERNAL NEG QC PASS INTERNAL POS QC PASS EXTERNAL QC DONE? YES A NEGATIVE TEST RESULT DOES NOT EXCLUDE INFECTION WITH INFLUENZA A OR B. THEREFORE, THE RESULTS OBTAINED FROM THIS FLU TEST SHOULD BE USED IN CONJUCTION WITH CLINICAL FINDINGS TO MAKE AN ACCURATE DIAGNOSIS. INDIVIDUALS WHO HAVE RECEIVED NASALLY ADMINISTERED INFLUENZA A VACCINE MAY TEST POSITIVE IN COMMERCIALLY AVAILABLE INFLUENZA RAPID DIAGNOSTIC TESTS FOR UP TO THREE DAYS. Performed By: #### [id number] #### [facility],[address] [place], [place] [id number] URINALYSIS Collected: 12/15/2017 Status: F Source: [facility] 6:56 PM [facility] REPOSITORY TYPE CODE TESTS RESULT OUT OF REFERENCE UNITS RANGE LAB URINALYSIS (LOINC) URINALYSIS Result Comment: URINALYSIS LAB Specimen Type(LOINC) Specimen Type Void LAB Color(LOINC) NORMAL: YELLOW Color rebecca LAB Clarity(LOINC) NORMAL: CLEAR Clarity clear LAB ph(LOINC) NORMAL: 5.0-8.0 ph 5 LAB Protein(LOINC) NORMAL: NEGATIVE Protein NEG LAB Glucose(LOINC) NORMAL: NORMAL Glucose NORM LAB Ketone(LOINC) NORMAL: NEGATIVE Ketone NEG LAB Bilirubin(LOINC) NORMAL: NEGATIVE Bilirubin NEG LAB Blood(LOINC) NORMAL: NEGATIVE Blood NEG LAB Urobilinog(LOINC) NORMAL: NORMAL Urobilinog NORM LAB Sp [place](LOINC) NORMAL: 1.010-1.030 Sp [place] 1.020 LAB Nitrite(LOINC) NORMAL: NEGATIVE Nitrite NEG LAB Leukocytes(LOINC) NORMAL: NEGATIVE Leukocytes Abnormal 25 LAB Microscopic(LOINC ) Microscopic SEE BELOW Result Comment: MICROSCOPIC LAB Wbc(LOINC) 0-5/hpf Wbc 1-5 LAB Rbc(LOINC) 0-3/hpf Rbc NONE LAB Casts(LOINC) Casts SEE BELOW LAB Cellular(LOINC) NORMAL: NONE Cellular RARE LAB Hyaline(LOINC) NORMAL: NONE Hyaline 1-5 LAB Crystals(LOINC) Crystals NONE LAB Amorphous(LOINC) Amorphous 1+ LAB Bacteria(LOINC) Bacteria NONE LAB Epi Cells(LOINC) Epi Cells OCC LAB Mucous(LOINC) Mucous NONE LAB Yeast(LOINC) Yeast NONE Performed By: #### [id number] #### [facility],[address] [place], [place] [id number] LACTATE Collected: 12/15/2017 Status: F Source: [facility] 6:08 PM [facility] REPOSITORY TYPE CODE TESTS RESULT OUT OF REFERENCE UNITS RANGE LAB LACTATE(MALINI 4.5 - 18.0 mg/dL NC) LACTATE 5.4 Performed By: #### [id number] #### [facility],[address] [place] [address] Observed: 12/15/2017 Status: F Source: [facility] CULTURE BLOOD 6:08 PM [facility] REPOSITORY CULTURE BLOOD _BLOOD CULTURE_ SET: 1 of 1 24HOUR REPORT NO GROWTH 48HOUR REPORT NO GROWTH 72HOUR REPORT NO GROWTH M I C R O B I O L O G Y R E P O R T FINAL Antimicrobial Susceptibility and Organism Identification Report Specimen Number : [id number] Requested : 12/15/17 Specimen Source : BLOOD Collected : 12/15/17 18:08 [place] : Emergency Room Received : 12/15/17 18:08 Requesting Physician : clifton Patient/Specimen Tests and Comments Specimen Comments FINAL REPORT: No Growth at 5 Days Tech : Source : BLOOD ID # : [id number] FINAL Report Date : / / : Collected : 12/15/17 18:08 12/21/17.54.JLN. 12/21/17.LIA.COMPLETE Performed By: #### [id number] #### [place] [id number] TROPONIN Collected: 12/15/2017 Status: F Source: [facility] 4:40 [facility] REPOSITORY TYPE CODE TESTS RESULT OUT OF REFERENCE UNITS RANGE LAB TROPONIN 0.00 - 0.05 ng/ml I(LOINC) TROPONIN I <0.01 Result Comment: Elevated troponin (above the 99th percentile) usually indicates myocardial ischemia. Results must be interpreted within the clinical setting. 1.Non-ischemic pathology can also cause elevated troponin levels (e.g., acute pulmonary embolism, myocarditis, pericarditis, heart failure, intracranial injury, rhabdomyolisis, sepsis, shock and renal insufficiency). 2.Approximately 1% of healthy adults have elevated troponin levels. 3.Analytical false positive results rarely occur(due to multiple interferences such as heterophile antibodies). Performed By: #### [id number] #### [place] [address] CMP WITH EGFR Collected: 12/15/2017 Status: F Source: [facility] 4:40 [facility] REPOSITORY TYPE CODE TESTS RESULT OUT OF RANGE REFERENCE UNITS LAB CMP with eGFR(LOINC) CMP with eGFR Result Comment: COMPREHENSIVE METABOLIC PANEL LAB SODIUM(LOINC) 136 - 145 mmol/l SODIUM 136 LAB POTASSIUM(LOINC) 3.5 - 5.1 mmol/L POTASSIUM 4.3 LAB CHLORIDE(LOINC) 98 - 107 mmol/L CHLORIDE 102 LAB CO2(LOINC) 21.0 - mmol/L 31.0 CO2 25.3 LAB GLUCOSE(LOINC) 74 - 106 mg/dl GLUCOSE 104 LAB BUN(LOINC) 6 - 20 mg/dl BUN High 22 LAB CREATININE(LOINC) 0.6 - 1.2 mg/dl High CREATININE 1.3 LAB AST/SGOT(LOINC) 13 - 39 U/L AST/SGOT Low 11 LAB ALK PHOS(LOINC) 38 - 126 U/L ALK PHOS 55 LAB CALCIUM(LOINC) 8.6 - mg/dl 10.2 CALCIUM 9.4 LAB TOTAL 6.4 - 8.3 g/dl PROTEIN(LOINC) TOTAL PROTEIN 6.4 LAB ALBUMIN(LOINC) 3.4 - 4.8 g/dL ALBUMIN 3.9 LAB GLOBULIN(LOINC) 1.5 - 3.8 G/DL GLOBULIN 2.5 LAB A/G RATIO(LOINC) 0.9 - 1.6 A/G RATIO 1.6 LAB TOTAL BILI(LOINC) 0.0 - 1.5 mg/dl TOTAL BILI 0.5 LAB B/C RATIO(LOINC) 0 - 30 ratio B/C RATIO 17 LAB ALT/SGPT(LOINC) 8 - 35 U/L ALT/SGPT 10 LAB ANION GAP(LOINC) 10 - 20 mmol/L ANION GAP 13 LAB AGE(LOINC) years AGE 77 LAB eGFR(LOINC) 60 - 999 ML/MINUTE eGFR Low 40 LAB eGFR(AA)(LOINC) 60 - 999 ML/MINUTE eGFR(AA) Low 48 Result Comment: ACCORDING TO THE NATIONAL KIDNEY DISEASE EDUCATION PROGRAM(NKDE), A NORMAL eGFR IS A VALUE GREATER THAN OR EQUAL TO 60 ML/MIN/1.73 SQ METERS. CHRONIC KIDNEY DISEASE: <60mL/MIN/1.73 SQ METERS KIDNEY FAILURE: <15mL/MIN/1.73 SQ METERS THIS TEST SHOULD ONLY BE USED FOR PATIENTS 18 YEARS OF AGE AND OLDER. Performed By: #### [id number] #### [facility],[address] [place] [id number] LIPASE Collected: 12/15/2017 Status: F Source: [facility] 4:40 PM [facility] REPOSITORY TYPE CODE TESTS RESULT OUT OF REFERENCE UNITS RANGE LAB LIPASE(LOIN 18.0 - 51.0 U/L C) LIPASE 28.0 Performed By: #### [id number] #### [facility],[address] [place] [address] CHEST 2 VIEWS Observed: 12/15/2017 Status: F Source: [facility] 4:27 PM [facility] REPOSITORY [place] [address] Patient: RADHA PEDERSEN Phone#: : 1940 Age: 77 Gender: F Pt. Type: ER Account: [id number] Location: 2 Ordering: TERA LAZO Exam Date: 12/15/2017/16:20 Family Phys: KAIA YBARRA Charge Code: [id number] Physician: WILLIAN FOFANA [place] Order #: [id number] DLP Dose#: PROCEDURE: X-RAY CHEST PA/LAT 2 VIEWS COMPARISON: [facility], XR, CHEST PA/LAT, 09/04/2015, 9:21. [facility], XR, CHEST PA/LAT, 11/02/2016, 16:57. [facility], CT, CHEST PE W CON, 09/14/2014, 16:54. [facility], XR, CHEST AP, 09/14/2014, 8:02. [facility], XR, CHEST PA/LAT, 11/13/2012, 9:43. [facility], XR, CHEST PA/LAT, 10/31/2017, 14:42. INDICATIONS: Chest Pain FINDINGS: LUNGS: Stable chronic changes in the right lung base. There are bilateral chronic interstitial changes. Linear scarring in the mid left lung zone. No acute focal pulmonary parenchymal abnormality. VASCULATURE: Normal. Unremarkable pulmonary vasculature. CARDIAC: Normal. No cardiac silhouette abnormality or cardiomegaly. MEDIASTINUM: The descending thoracic aorta is tortuous and appears enlarged. There is a stable density at the left hilum. PLEURA: Normal. No effusion or pleural thickening. BONES: There is severe dextroscoliosis of the thoracic spine with associated degenerative changes. OTHER: There are surgical clips in the right axilla. CONCLUSION: 1. No acute pulmonary parenchymal abnormality. No change. 2. Tortuous thoracic aorta. The descending aorta appears enlarged however this may be projectional. Dictated by: Jihan Baird MD on 12/15/2017 at 16:37 Approved by: Jihan Baird MD on 12/15/2017 at 16:37 CT KUB (KIDNEY STONE Observed: 12/15/2017 Status: F Source: [facility]) 4:27 PM [place] [address] Patient: RADHA PEDERSEN Phone#: : 1940 Age: 77 Gender: F Pt. Type: ER Account: [id number] Location: [facility] Ordering: TERA LAZO Exam Date: 12/15/2017/16:11 Family Phys: KAIA YBARRA Charge Code: [id number] Physician: [place] Order #: [id number] DLP Dose#: PROCEDURE: CT ABDOMEN AND PELVIS WITHOUT CONTRAST COMPARISON: None. INDICATIONS: Abdominal Pain TECHNIQUE: After obtaining the patient's consent, CT images of the abdomen and pelvis were created without non-ionic intravenous contrast material. All CT scans at this facility use dose modulation, iterative reconstruction, and/or weight based dosing when appropriate to reduce radiation dose to as low as reasonably achievable. IV CONTRAST: No IV contrast used,0ml TOTAL DOSE: 26.10 CTDIvol(mGy) FINDINGS: KIDNEYS: No nephrolithiasis or hydronephrosis. The kidneys are unremarkable in contour. ADRENALS: Normal. No mass or enlargement. URINARY BLADDER: Normal. No visible focal wall thickening, lesion, or calculus. LIVER: Unremarkable in contour. Calcified granulomas are seen within the liver. BILIARY: The gallbladder is absent, the remnant cystic duct is dilated. At the dilated cystic remnant there are 2 punctate high attenuation lesions. These may represent surgical suture versus small cholelithiasis. PANCREAS: Normal. No lesion, fluid collection, ductal dilatation, or atrophy. SPLEEN: Calcified granulomas throughout the spleen. AORTA/VASCULAR: The aorta is tortuous without aneurysm. There are atherosclerotic calcifications of the aorta and branch vessels. There is a left retroaortic renal vein. RETROPERITONEUM: Normal. No mass or adenopathy. BOWEL/MESENTERY: No bowel obstruction or dilatation. There is diverticulosis of the sigmoid colon. The appendix is unremarkable in size. Continued Report - Page 2 of 2 Patient: RADHA PEDERSEN Phone#: : 1940 Age: 77 Gender: F Pt. Type: ER Account: [id number] Location: 052 Ordering: TERA LAZO Exam Date: 12/15/2017/16:11 Family Phys: KAIA YBARRA Charge Code: [id number] Physician: [place] Order #: [id number] DLP Dose#: ABDOMINAL WALL: Normal. No mass or hernia. PELVIC NODES: Normal. No adenopathy. PELVIC ORGANS: Uterus is present. BONES: There is scoliosis of the thoracolumbar spine with associated severe degenerative changes. Large Schmorl's node in the superior endplate of T12. LUNG BASES: There are chronic emphysematous changes in the lung bases. OTHER: Right breast implant is partially imaged. CONCLUSION: 1. No nephrolithiasis or hydronephrosis. 2. Dilated cystic duct remnant. Two high attenuation structures at the cystic remnant may represent surgical suture material versus small cholelithiasis. Dictated by: Jihan Baird MD on 12/15/2017 at 16:51 Approved by: Jihan Baird MD on 12/15/2017 at 16:52 CBC Collected: 12/15/2017 Status: F Source: [facility] 3:55 PM [facility] REPOSITORY TYPE CODE TESTS RESULT OUT OF RANGE REFERENCE UNITS LAB CBC(LOINC) CBC Result Comment: CBC-COMPLETE BLOOD COUNT LAB WBC(LOINC) 4.5 - 10.8 x 10EE3/UL WBC High 12.4 LAB RBC(LOINC) 4.10 - x 10EE6/UL 5.30 RBC 4.64 LAB HEMOGLOBIN(LOINC 12.0 - g/dl ) 16.0 HEMOGLOBIN 14.2 LAB HEMATOCRIT(LOINC 34.0 - % ) 46.0 HEMATOCRIT 41.9 LAB MCV(LOINC) 80 - 99 fl MCV 90 LAB MCH(LOINC) 27 - 33 pg MCH 31 LAB MCHC(LOINC) 32 - 36 X10 3 MCHC 34 LAB RDW/CV(LOINC) 12.0 - % 15.6 RDW/CV 13.3 LAB PLATELET(LOINC) 150 - 450 x10EE3/UL PLATELET 179 LAB MPV(LOINC) 6.6 - 10.5 fl MPV 9.4 Result Comment: AUTOMATED DIFFERENTIAL LAB NEUT %(LOINC) 46.0 - 76.0 % NEUT % 55.8 LAB LYMPH %(LOINC) 20.0 - 45.0 % LYMPH % 32.3 LAB MONOS %(LOINC) 0.0 - 10.0 % MONOS % 9.6 LAB EO %(LOINC) 0.0 - 7.0 % EO % 1.8 LAB BASO %(LOINC) 0.0 - 2.0 % BASO % 0.5 LAB Lymph #(LOINC) 0.80 - 2.80 x10EE3/U L Lymph # High 4.00 LAB Neut #(LOINC) 1.50 - 7.10 x10EE3/U L Neut # 6.90 LAB Bollinger #(LOINC) 0.20 - 1.00 x10EE3/U L Bollinger # High 1.20 LAB EO #(LOINC) 0.00 - 0.50 x10EE3/U L EO # 0.20 LAB Baso #(LOINC) 0.00 - 0.10 x10EE3/U L Baso # 0.10 LAB MANUAL DIFF(LOINC) MANUAL DIFF N/A LAB MORPHOLOGY(LOINC ) MORPHOLOGY N/A Result Comment: {CD] Performed By: #### [id number] #### [facility],[address] [place] [address] ALLERGIES ALLERGIES DATE TYPE / CODE NAME / CODE REACTION SEVERITY SOURCE 11/16/2018 Drug No Known Unknown [facility] Allergy/4160 Allergies/F00 [facility] [address]494(SNOMED 7488963(RXNOR Repository CT) M) Drug DEMECLOCYCLIN Moderate [facility] All[facility]/4160 E/01572608(RX ([place] [address](SNOMED NORM) Modifier) Repository CT) (Qualifier Value) Drug BIAXIN/574749 RASH Moderate [place] Allergy/4160 03(RXNORM) ([place] [address](SNOMED Modifier) Repository CT) (Qualifier Value) ENCOUNTERS ENCOUNTERS ADMIT/DISCHARGE ACCOUNT ADMITTING ENCOUNTER LOCATION SOURCE NUMBER CLASS 11/16/2018 [id number] Ambulatory [place] Kath[place] 9 [facility] ing:HPRAD Repository 11/16/2018/ [id number] Ambulatory BMSBuilding:B [place] 9 7 [facility] Repository 11/08/2018 [id number] Ambulatory Kathi [place] 2 [facility] ing:LAB Repository 07/14/2018 [id number] [place], Ambulatory [place] [facility] Repository 07/13/2018 [id number] [place] Repository 04/09/2018/ [id number] [place], [facility] 8 [facility] Repository 03/24/2018 [id number] Ambulatory Kathi [place] 8 [facility] ing:MRI Repository 02/17/2018/ [id number] RICHA PHILIPPE [facility] [place] [facility] 8 [facility] Repository 01/20/2018/ [id number] [place], Ambulatory [place] 8 [facility] Repository 12/30/2017/ [id number] [place], [facility] 8 [facility] Repository 12/15/2017/ [id number] [place], Emergency [address]in[address] [place] [address] TERA DALY oom: ERBed: C [facility] Repository PAYERS PAYERS ENCOUNTER GUARANTOR PAYER SUBSCRIBER SOURCE 11/16/2018 RADHA Workman Primary RADHA Arment[place] [id number] CR Insurance:JYOTIA JUAN MIGUELB: [place], MEDICARE PPOPolicy [id number] [address]Pll: Number: Repository [id number] (HP) Date:[id number] [address]GC: 11/16/2018 Secondary NOT GIVENUNK [place] Insurance:SELF PAY [facility] Number: Effective Repository Date:2018-11-16 11/16/2018 RADHA Wrokman Primary RADHA Ar[place]a [id number] CR Insurance:HUMANA PIERCEDOB: [place], MEDICARE PPOPolicy [id number] [place] [address]Qxe: Number: Repository [id number] () Date:[id number] [address] [address]TR: 11/16/2018 Secondary NOT GIVENUNK [place] Insurance:SELF PAY [facility] Number: Effective Repository Date:2018-07-06 11/08/2018 RADHA Workman Primary RADHA PEDERSEN9209 CR Insurance:HUMANA PIERCEDOB: [place], MEDICARE PPOPolicy [id number] [place] [address]Msd: Number: Repository [id number] () Date:[id number] [address] [address]HZ: 11/08/2018 Secondary NOT GIVENUNK [place] Insurance:SELF PAY [facility] Number: Effective Repository Date:2018-11-08 07/14/2018 RADHA Workman Primary RADHA PEDERSENDOB: Insurance:HUMANA PIERCEDOB: [facility] MEDICARE ADVANTAGE [id number] [facility] OUTPATIENTPolicy [address] Repository [address] [place] [address], Number: [address] [place] [address] [id number] [place] [id number]: Date:Plan Name:HCP O [address] () [id number]: 07/13/2018 RADHA Workman Primary RADHA PEDERSENDOB: Insurance:HUMANA PIERCEDOB: [facility] MEDICARE ADVANTAGE [id number] [facility] OUTPATIENTPolicy [address] Repository [address] [place] [address], Number: [address] [place] [address] [id number] [place] [id number]: Date:Plan Name:HCP O [address] () [id number]: 04/09/2018 RADHA BULLARDB: Insurance:HUMANA PIERCEDOB: [facility] MEDICARE ADVANTAGE [id number] [facility] OUTPAT[address]Policy [address] Repository [address] [place] [address], Number: [facility] [place] [id number] [place] [id number]: Date:Plan Name:HCP O [address] () [id number]: 03/24/2018 Radha Pedersen9209 Insurance:HUMANA PierceDOB: [address] MEDICARE PPOPolicy [id number], Number: Repository [place] [address]Fbx: [id number] Date:3539-24-29[facility] () [address] [place] [address]YS: 03/24/2018 Secondary NOT GIVENUNK [place] Insurance:SELF PAY [facility] Number: Effective Repository Date:2018-03-12 02/17/2018 RADHA BULLARDB: Insurance:HUMANA PIERCEDOB: [facility] MEDICARE ADVANTAGE [id number] [facility] OUTPATIENTPolicy [address] Repository [address] [place] [address], Number: [facility] [place] [id number] [place] [id number]: Date:Plan Name:HCP O [address] () [id number]: 01/20/2018 RADHA BULLARDB: Insurance:HUMANA PIERCEDOB: [facility] MEDICARE ADVANTAGE [id number] [facility] OUTPATIENTPolicy [address] Repository [address] [place] [address], Number: [address] [place] [address], [place] [id number] [place] [id number]: Date:Plan Name:[facility] [address] [place] [address] () [id number]: 12/30/2017 RADHA Workman Primary RADHA PEDERSENDOB: Insurance:HUMANA PIERCEDOB: [facility] MEDICARE ADVANTAGE [id number] [place] [address] Repository [address] [place] [address], Number: [id number] [id number] [place] [id number]: Date:Plan Name:[facility] O [address] () [id number]: 12/15/2017 RADHA Workman Primary RADHA PEDERSENDOB: Insurance:HUMANA PIERCEDOB: [facility] MEDICARE ADVANTAGE [id number] [facility] [address] Repository [address] [place] [address], Number: [id number] [id number] [place] [id number]: Date:Plan Name:[facility] O [address] () [id number]: 12/15/2017 Secondary RADHA [place] Insurance:HUMANA PIERCEDOB: [facility] MEDICARE ADVANTAGE [id number] [facility] [address] Repository Number: [address], [id number] [place] [id number] Date:Plan Name:P O [address] [id number]:
== END ==
PROVIDERS: Family Provider Physician Assistant; PCP Physician Assistant; Referring Provider Orthopaedic Surgery; Visit Provider Orthopaedic Surgery
DX: M54.5 Low back pain (principal)
CPT/HCPCS: 72082; 72110

== ENCOUNTER → 2021-06-19 | Outpatient (CLI) | payer MEDICARE, SELFPAY ==
--- NOTE | 2021-06-19 15:00 | CYST_PTH ---
PATIENT: PRISCILLA PEDERSEN LOC: [facility] U#:[id number] AGE/SX: 80/F ROOM: RE06/19/[address]: Dr. Etienne Villareal MD : 1940 BED: DIS: 06/19/2021 SPEC #: [id number] RECD: 06/19/21 15:50 STATUS: TYSON REZenon #: [id number] ANICETO: 06/19/21 15:[address]: Etienne Villareal DEPT: SURGICAL PATHOLOGY RECD BY: Christina Gonzalez ENTERED: 06/20/21 07:57 SP TYPE: Cyst OTHR DR: DANIELLA Galo Tissues: CYST Procedures: Surgery Specimen Level III HEADER OPERATION: Excision of posterior neck cyst PRE-OP DIAGNOSIS: Cyst on neck TISSUE SUBMITTED: Posterior neck cyst MICROSCOPIC DIAGNOSIS Posterior neck cyst, excision: Epidermal inclusion cyst. STEPHANIE:matthew 06/21/2021 MICROSCOPIC DESCRIPTION Slides are reviewed. GROSS DESCRIPTION Received in fixative is one container labeled with the patient's name and designated posterior neck cyst. The specimen consists of a piece of skin with underlying tissue. The skin piece measures 1.5 x 0.2 cm. The underlying tissue measures 1.5 x 1 x 1 cm. The specimen is inked, serially sectioned and reveals a cyst filled with cali-white cheesy material measuring 1 cm in greatest dimension. The entire specimen is submitted in two cassettes. / SJ:matthew 06/20/21 TC:5 [facility]: [id number]
== END | disposition home or self-care (01) ==
PROVIDERS: PCP Physician Assistant; Visit Provider Surgery
DX: L72.0 Epidermal cyst (principal)
CPT/HCPCS: 88304

== ENCOUNTER → 2021-07-17 12:38 | Outpatient (CLI) | payer MEDICARE, SELFPAY ==
[2021-06-11 06:29] VITALS: BMI 38.8
--- NOTE | 2021-07-19 10:47 | PFT ---
INTRODUCTION: The patient is a 80-year-old female that presents for pulmonary function studies secondary to a diagnosis of shortness of breath. Respiratory therapy reported good patient effort. Bronchodilators were used during testing. INTERPRETATION: Forced expiration spirometry demonstrates no evidence of a large airways obstructive ventilatory defect. There was a significant response to aerosolized bronchodilators noted. Spirograms are of good quality and plateau normally. Body plus tomography was performed and revealed a decreased TLC to 3.47 L, 80% of predicted, indicative of a mild restrictive ventilatory impairment. Diffusing capacity by single breath CO is reduced at 46% of predicted. IMPRESSION: Stigmata of small airways disease with significant bronchodilator response. Mild restrictive ventilatory impairment with disproportionate reduction in diffusing capacity was also noted.
== END ==
PROVIDERS: PCP Physician Assistant; Referring Provider Internal Medicine Critical Care Medicine; Visit Provider Internal Medicine Critical Care Medicine
DX: R06.02 Shortness of breath (principal)
CPT/HCPCS: 94060; 94726; 94729

== ENCOUNTER → 2021-07-18 12:40 | Outpatient (CLI) | payer MEDICARE, SELFPAY ==
[2021-06-11 06:29] VITALS: BMI 38.8
[2021-07-18 13:33] VITALS: PULSE 73; PULSE 74; PULSE 76; PULSE 78; PULSE 83; PULSE 84; PULSE 87; PULSE 88; O2SAT 90; O2SAT 91; O2SAT 92; O2SAT 93; O2SAT 95; O2SAT 96
--- NOTE | 2021-07-19 10:56 | WT_ITS ---
PSN 6 Minute Walk Test 6 Minute Walk Test 6 Minute Walk Test: 6 Minute Walk Test PSN:6-Minute Walk Test Start: 07/18/21 13:32 Freq: Status: Active Protocol: RESP.6MINW Document 07/18/21 13:33 [facility] (Rec: 07/18/21 13:37 [facility] [id number]) 6 Minute Walk Test Date Performed 07/18/21 Time Performed 13:00 Height 5 ft 2 in Weight: 93.44 kg Weight in Pounds 206.[address]: Jordan Shi Assistive device used: Walker Pre-test Oxygen Delivery Method Room Air Pulse Ox (%) 95 Pulse Rate (60-100 beats/min) 73 Dyspnea Scott Scale (0-10) 0 1st minute Oxygen Delivery Method Room Air Pulse Ox (%) 92 Pulse Rate (60-100 beats/min) 76 Dyspnea Scott Scale (0-10) 1 Number of Rests Taken 0 2nd minute Oxygen Delivery Method Room Air Pulse Ox (%) 92 Pulse Rate (60-100 beats/min) 78 Dyspnea Scott Scale (0-10) 3 Number of Rests Taken 1 Reported Symptoms Increased Work of Breathing 3rd minute Oxygen Delivery Method Room Air Pulse Ox (%) 90 Pulse Rate (60-100 beats/min) 84 Dyspnea Scott Scale (0-10) 4 Number of Rests Taken 1 Reported Symptoms Increased Work of Breathing 4th minute Oxygen Delivery Method Room Air Pulse Ox (%) 91 Pulse Rate (60-100 beats/min) 83 Dyspnea Scott Scale (0-10) 3 Number of Rests Taken 1 Reported Symptoms Increased Work of Breathing 5th minute Oxygen Delivery Method Room Air Pulse Ox (%) 93 Pulse Rate (60-100 beats/min) 87 Dyspnea Scott Scale (0-10) 3 Number of Rests Taken 0 Reported Symptoms Increased Work of Breathing 6th minute Oxygen Delivery Method Room Air Pulse Ox (%) 91 Pulse Rate (60-100 beats/min) 88 Dyspnea Scott Scale (0-10) 3 Number of Rests Taken 0 Reported Symptoms Increased Work of Breathing Post-test Oxygen Delivery Method Room Air Pulse Ox (%) 96 Pulse Rate (60-100 beats/min) 74 Dyspnea Scott Scale (0-10) 0 Full Laps Walked 6 Partial Lap, Number of Tiles Walked 33 Total Distance Walked (ft) 387 Interpretation Interpretation: The patient ambulated 387 feet over the course of 6 minutes beginning on room air with the use of a walker. Pretesting oxygen saturation was noted to be 95% on room air. With ambulation, the danny oxygen saturation was 90%. There was evidence of both impaired walk distance and significant exertional oxygen desaturation. Recommendations Recommendations: There is no indication for the use of supplemental oxygen at this time. However, close interval follow-up is recommended, given the degree of oxygen desaturation noted during this study.
== END ==
LOC: PSN 12:41
PROVIDERS: PCP Physician Assistant; Referring Provider Internal Medicine Critical Care Medicine; Visit Provider Internal Medicine Critical Care Medicine
DX: R06.02 Shortness of breath (principal)
CPT/HCPCS: 94618

== ENCOUNTER → 2023-04-01 | Outpatient (CLI) | payer MEDICARE, SELFPAY ==
[2023-04-01 16:58] LABS: Absolute Lymphocyte Count 6.12 X10^3/uL (0.83-4.51); Absolute Neutrophil Count 8.9 X10^3/uL (2.0-7.7); Basophil# 0.07 X10^3/uL; Basophil% 0.4 % (0-1); Eosinophil# 0.35 X10^3/uL; Hematocrit 48.2 % (37-47); Hemoglobin 14.9 g/dL (12.0-15.0); Lymphocyte # 6.12 X10^3/ul (0.83-4.51); Lymphocyte % 35.7 % (19-41); Mean Corp Hgb Conc 30.9 g/dL (32-36); Monocyte# 1.65 X10^3/uL; Monocyte% 9.6 % (0-10); NRBC Flagged by Analyzer 0 % (0-5); Neutrophil % 51.9 % (47-70); POSITIVE DIFFERENTIAL YES; Platelet Count 147 K/mm3 (150-450); RBC Distribution Width CV 14.9 % (11.6-14.6); RBC Distribution Width SD 51.4 fl (35.1-43.9); Red Blood Count 5.13 M/mm3 (4.2-5.4); White Blood Count 17.2 K/mm3 (4.4-11.0)
[2023-04-01 17:20] LABS: Differential Indicated SCAN CRITERIA MET
[2023-04-01 18:04] LABS: Differential Comment SCANNED
[2023-04-01 18:11] LABS: Estradiol < 11.0 pg/mL; Follicle Stimulating Hormone 89.5 mIU/mL; Luteinizing Hormone 24.9 mIU/mL; Prolactin 9.5 ng/mL
[2023-04-01 20:01] LABS: Progesterone Level < 0.21 ng/mL (See Comment)
[2023-04-02 09:39] LABS: Pathologist Review Reviewed
[2023-04-06 17:07] LABS: HPV APTIMA, High Risk Negative (Negative)
== END | disposition home or self-care (01) ==
LOC: WOBLAB 15:18
PROVIDERS: PCP Physician Assistant; Visit Provider Nurse Practitioner Women's Health
DX: N95.0 Postmenopausal bleeding (principal); Z12.4 Encounter for screening for malignant neoplasm of cervix
CPT/HCPCS: 36415; 82670; 83001; 83002; 84144; 84146; 85025; 87624; 88175; G0145

== ENCOUNTER → 2023-04-14 | Outpatient (CLI) | payer MEDICARE, SELFPAY ==
--- NOTE | 2023-04-14 | EMB_PTH ---
PATIENT: PRISCILLA PEDERSEN LOC: [facility] U#:[id number] AGE/SX: 82/F ROOM: RE04/14/[address]: Dr. Dieter Vargas MD : 1940 BED: DIS: 04/14/2023 SPEC #: [id number] RECD: 04/14/23 15:00 STATUS: TYSON FORTUNATO #: [id number] ANICETO: 04/14/23 00:[address]: Dieter Vargas DEPT: SURGICAL PATHOLOGY RECD BY: Sagar Duke ENTERED: 04/15/23 09:17 SP TYPE: ENDOM BX/C BRITNI DR: DANIELLA Galo Tissues: Endometrium, NOS Procedures: Surgery Specimen Level IV HEADER OPERATION: Endometrial biopsy PRE-OP DIAGNOSIS: Postmenopausal bleeding N95.0 TISSUE SUBMITTED: Endometrial biopsy MICROSCOPIC DIAGNOSIS Endometrium, biopsy: Scant strips of benign superficial glandular mucosa. See comment. AM:matthew 04/16/2023 COMMENT The specimen primarily consists of mucoid material. Clinical correlation is suggested. MICROSCOPIC DESCRIPTION Slides are reviewed. GROSS DESCRIPTION Received in fixative is one container labeled with the patient's name and designated endometrial biopsy. The specimen consists of multiple irregular mucoid, pink-cali soft tissue that in aggregate measure 2.0 x 1.0 x 0.1 cm. The specimen is totally submitted in one cassette. / AM:matthew 04/15/2023 TC:5 CPT: [id number]
[2023-04-21 14:09] LABS: HPV APTIMA, High Risk Negative (Negative)
== END | disposition home or self-care (01) ==
LOC: LABSPEC 14:35
PROVIDERS: PCP Physician Assistant; Visit Provider Obstetrics & Gynecology
DX: N95.0 Postmenopausal bleeding (principal); Z12.4 Encounter for screening for malignant neoplasm of cervix
CPT/HCPCS: 87624; 88175; 88305; G0145

== ENCOUNTER → 2023-07-30 | Outpatient (CLI) | payer MEDICARE, SELFPAY | END | disposition home or self-care (01) | LOC: LAB 16:28 | PROVIDERS: PCP Physician Assistant; Referring Provider Urology; Visit Provider Urology | DX: R31.0 Gross hematuria (principal) | CPT/HCPCS: 87077; 87086; 87088; 87186 ==

== ENCOUNTER → 2023-08-20 | Outpatient (CLI) | payer MEDICARE, SELFPAY ==
--- NOTE | 2023-08-20 14:21 | CT_ITS ---
STUDY: CT ABDOMEN AND PELVIS WITH CONTRAST REASON FOR EXAM: Female, 83 years old. GROSS HEMATURIA RADIATION DOSAGE (If Supplied By Facility): CTDIvol = ( 21.79 ) mGy, DLP = ( 1140.64 ) mGycm TECHNIQUE: Transaxial images were obtained from the dome of the diaphragm to the symphysis pubis without oral contrast. IV 100mL Isovue-370 was administered. Sagittal and coronal images were reconstructed. Individualized dose optimization techniques were used for this CT. COMPARISON: 02/18/2016 FINDINGS: The visualized lung bases are unremarkable. The visualized portions of the heart are within normal limits. Normal liver. There are multiple gallstones. There are multiple benign calcified granulomata of the spleen. Normal pancreas. Normal bilateral adrenal glands. Normal right kidney. Normal left kidney. Small bilateral renal cysts. Normal visualized stomach. Normal small intestine. There are multiple colonic diverticula consistent with diverticulosis. The appendix is visualized and appears normal. Dilatation of the infrarenal abdominal aorta with a maximal diameter of 2.5 cm. Normal inferior vena cava. Normal retroperitoneum. Normal urinary bladder. Normal abdominal wall. Moderate levoscoliosis of the lumbar spine with degenerative disc disease. CT/Abdomen/Pelvis W IV Cont ONLY IMPRESSION: No CT evident etiology for hematuria. Sigmoid diverticulosis without diverticulitis. Electronically Signed: Tera Boudreaux MD at 23:24 EDT ,
[2023-08-20 14:59] LABS: CREATININE FINGERSTICK 1.2 mg/dL (0.55-1.02)
== END | disposition home or self-care (01) ==
LOC: CT 14:19
PROVIDERS: PCP Physician Assistant; Referring Provider Urology; Visit Provider Urology
DX: R31.0 Gross hematuria (principal)
CPT/HCPCS: 74177; Q9967; A4216

== ENCOUNTER → 2023-09-11 | Outpatient (CLI) | payer MEDICARE, SELFPAY ==
--- NOTE | 2023-09-11 | BLA_PTH ---
PATIENT: PRISCILLA PEDERSEN LOC: [facility] U#:[id number] AGE/SX: 83/F ROOM: RE09/11/[address]: Dr. Agustin Ibarra MD : 1940 BED: DIS: 09/11/2023 SPEC #: [id number] RECD: 09/14/23 07:35 STATUS: TYSON FORTUNATO #: [id number] ANICETO: 09/11/23 00:[address]: Agustin Ibarra DEPT: SURGICAL PATHOLOGY RECD BY: Luz Watson ENTERED: 09/14/23 07:36 SP TYPE: BLADDER BX OTHR DR: DANIELLA Galo [facility] Tissues: Urinary bladder, NOS Procedures: Surgery Specimen Level V HEADER OPERATION: Bilateral transurethral resection of bladder tumor, medium PRE-OP DIAGNOSIS: Neoplasm of bladder, gross hematuria TISSUE SUBMITTED: Bladder MICROSCOPIC DIAGNOSIS Urinary bladder tumor, transurethral resection: Papillary urothelial carcinoma. See synoptic report below. AM:matthew 09/15/2023 COMMENT BLADDER CANCER (TUR) SUMMARY Procedure: Transurethral resection of bladder tumor (TURBT) Tumor site: Not specified Histologic type: Papillary urothelial carcinoma Associated epithelial lesions: None identified Histologic grade: 1/3 (WHO low grade) Tumor configuration: Papillary Muscularis propria presence: Not present Lymphvascular invasion: Not identified Tumor extension: Confined to urothelium. Additional pathologic findings: Rare microcalcifications and focal squamous differentiation. 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 MICROSCOPIC DESCRIPTION Slides are reviewed. GROSS DESCRIPTION Received is one container labeled with the patient's name and not further designated. The specimen consists of multiple irregular fragments of light cali soft tissue that in aggregate measure 1.5 x 0.5 x <0.1 cm. The specimen is totally submitted in one cassette. / AM:matthew 09/14/2023 TC:0 CPT: 14720
== END | disposition home or self-care (01) ==
LOC: LABSPEC 15:19
PROVIDERS: PCP Physician Assistant; Visit Provider Urology
DX: D41.4 Neoplasm of uncertain behavior of bladder (principal); R31.0 Gross hematuria
CPT/HCPCS: 88305; 88307